=== PATIENT | male | born 1995 | race Asian ===

== ENCOUNTER 2017-09-26 18:15 | Emergency (ER) | payer SELFPAY ==
[2017-09-26] MEDS: IV NORMAL SALINE 1000ML BAG 1,000 ML IV (19:33)
[2017-09-26 19:37] LABS: BASO % 0 % (0-3); EOS % 0 % (0-3); HEMATOCRIT 40.5 % (39.0-53.0); HEMOGLOBIN 14.2 g/dL (13.0-17.5); LYMPH # 0.5 x10^3/uL (1.0-4.8); LYMPH % 7 % (24-48); MEAN CORPUSCULAR HEMOGLOBIN 31 pg (25-35); MEAN CORPUSCULAR HGB CONC 35 g/dL (31-37); MEAN CORPUSCULAR VOLUME 89 fL (79-100); MONO # 0.4 x10^3/uL (0.0-1.1); MONO % 6 % (0-9); NEUT # 6.2 x10^3uL (1.8-7.7); NEUT % 86 % (31-73); PLATELET COUNT 187 x10^3/uL (140-400); RED BLOOD COUNT 4.53 x10^6/uL (4.30-5.70); RED CELL DISTRIBUTION WIDTH 13.5 % (11.5-14.5); WHITE BLOOD COUNT 7.2 x10^3/uL (4.0-11.0)
[2017-09-26 19:38] LABS: ADD MAN DIFF? YES
[2017-09-26 19:45] LABS: ANION GAP 7 (6-14); BILIRUBIN,URINE NEGATIVE (NEG); BLOOD UREA NITROGEN 19 mg/dL (8-26); BUN/CREATININE RATIO 21 (6-20); CARBON DIOXIDE 28 mmol/L (21-32); CHLORIDE 104 mmol/L (98-107); COLOR,URINE YELLOW; CREATININE 0.9 mg/dL (0.7-1.3); GFR 105.5; GLUCOSE 122 mg/dL (70-99); GLUCOSE,URINE NEGATIVE (NEG); NITRITE,URINE NEGATIVE (NEG); PH,URINE 6.5; POTASSIUM 3.2 mmol/L (3.5-5.1); PROTEIN,URINE NEGATIVE (NEG-TRACE); SODIUM 139 mmol/L (136-145)
[2017-09-26 19:51] LABS: ALBUMIN 3.6 g/dL (3.4-5.0); ALBUMIN/GLOBULIN RATIO 0.9 (1.0-1.7); ALK PHOS 92 U/L (46-116); ALT (SGPT) 48 U/L (16-63); AST (SGOT) 26 U/L (15-37); BACTERIA,URINE 0 /HPF (0-FEW); CLARITY,URINE CLEAR; MAGNESIUM 1.8 mg/dL (1.8-2.4); RBC,URINE 0 /HPF (0-2); SQUAMOUS EPITHELIAL CELL,UR FEW /LPF; TOTAL BILIRUBIN 0.3 mg/dL (0.2-1.0); TOTAL PROTEIN 7.5 g/dL (6.4-8.2); WBC,URINE 0 /HPF (0-4)
[2017-09-26 20:00] LABS: % BASOS 1 % (0-3); % EOS 1 % (0-5); % LYMPHS 9 % (24-48); % MONOS 3 % (0-10); % SEGS 86 % (35-66); PLT ESTIMATE ADEQUATE (ADEQUATE)
[2017-09-26] MEDS: MECLIZINE HCL 12.5 MG TABLET. PO (20:28)
== END 2017-09-26 21:59 | disposition home or self-care (01) ==
LOC: ER 18:15
DX: R42 Dizziness and giddiness (principal); R00.0 Tachycardia, unspecified; F41.9 Anxiety disorder, unspecified
CPT/HCPCS: 36415; 80053; 81001; 83735; 85007; 85025; 93005; 96360; 99285-25; J7030; J8597